=== PATIENT | female | born 1990 | race African-American/Black ===

== ENCOUNTER 2017-11-01 11:47 | Emergency (ER) | payer OTHER ==
[~2017-11-01] VITALS: Ht 162.6 cm; Wt 64.0 kg
[2017-11-01 12:20] VITALS: BP 131/64
== END 2017-11-01 13:05 | disposition home or self-care (01) ==
LOC: ER 13:02
DX: L30.9 Dermatitis, unspecified (principal)
CPT/HCPCS: 99283